=== PATIENT | female | born 1950 | race Caucasian/White ===

== ENCOUNTER 2017-05-27 18:12 | Emergency (ER) | payer MEDICARE, BC ==
[2017-05-27 20:36] LABS: % BASOPHILS 1.1 % (0.0-2.0); % EOSINOPHILS 1.5 % (0.0-5.0); % LYMPHOCYTES 13.6 % (20.0-50.0); % MONOCYTES 5.1 % (2.0-10.0); % NEUTROPHILS 78.7 % (40.0-80.0); HEMATOCRIT 43.2 % (41.0-60); HEMOGLOBIN 14.5 gm/dL (12-16); MEAN CELL VOLUME 89.8 fl (81-100); MEAN CORPUSCULAR HEMOGLOBIN 30.2 pg (27.0-31.0); MEAN CORPUSCULAR HGB CONC 33.6 pg (28.0-36.0); MEAN PLATELET VOLUME 8.4 fl; NEUTROPHILE ABSOLUTE 7.4 Th/cmm (1.8-8.0); PLATELET COUNT 187 Th/cmm (150-400); RED BLOOD COUNT 4.81 Mil/cmm (3.80-5.20); RED CELL DISTRIBUTION WIDTH 12.5 % (11.5-20.0); WHITE BLOOD COUNT 9.4 Th/cmm (4.8-10.8)
[2017-05-27 20:54] LABS: ALB/GLOB RATIO 1.5 (1.0-1.8); ALKALINE PHOSPHATASE 65 U/L (34-104); ANION GAP 11.6 (7.0-16.0); BILIRUBIN,TOTAL 0.8 mg/dL (0.3-1.0); BUN - UREA NITROGEN 11 mg/dL (7-25); BUN/CREATININE RATIO 12.2; CALCIUM SERUM 10.1 mg/dL (8.6-10.3); CARBON DIOXIDE 28.8 mEq/L (21.0-31.0); CHLORIDE 101 mEq/L (98-107); CREATININE - SERUM 0.9 mg/dL (0.6-1.2); GLUCOSE 105 mg/dL (70-105); POTASSIUM SERUM 3.4 mEq/L (3.5-5.1); SGOT 22 U/L (13-39); SGPT/ALT 22 U/L (7-52); SODIUM SERUM 138 mEq/L (136-145)
[2017-05-27 21:24] LABS: URINE BILIRUBIN NEGATIVE (NEGATIVE); URINE BLOOD LARGE (NEGATIVE); URINE GLUCOSE (UA) NEGATIVE (NEGATIVE); URINE KETONE NEGATIVE (NEGATIVE); URINE PROTEIN NEGATIVE (NEGATIVE); URINE UROBILINOGEN 0.2 E.U./dL (0.2 - 1.0)
[2017-05-27 21:29] LABS: URINE BACTERIA NONE SEEN /hpf (NONE SEEN); URINE COLOR PALE YELLOW; URINE EPITHELIAL CELLS NONE SEEN /lpf (FEW); URINE WBC 0-2 /hpf (0-5)
[2017-05-27] MEDS ORDERED: Albuterol/Ipratropium Neb 3 ML AERS HHN ONE ×2 (21:44→21:49)
[2017-05-27] MEDS ORDERED: OSELTAMIVIR PHOSPHATE 75 MG CAP PO ONE (22:17)
[2017-05-28] MEDS ORDERED: OSELTAMIVIR PHOSPHATE 75 MG CAP PO SCH (09:00)
--- NOTE | 2017-05-28 09:45 | Diagnostic Imaging Report ---
CHEST X-RAY: AP view INDICATION: Cough COMPARISON: None FINDINGS: Suboptimal lung volumes are noted. Mild chronic lung changes are seen with left basal atelectatic changes. No focal consolidation or effusions. Heart size is normal. Degenerative changes of the spine are noted. IMPRESSION: Mild chronic lung changes with left basal atelectatic changes. No focal consolidation identified.
--- NOTE | 2017-05-28 10:30 | ED Physician Chart ---
ED Chief Complaint/HPI - Patient Information Date Seen:: 05/27/17 Time Seen:: 19:30 Chief Complaint:: Cough History of Present Illness:: 66 yo female walked into the ER with c/o dry cough and mid upper chest tightness x 1 day. pt states "I feel lousy". pt states yesterday she felt fine. pt is speaking to RN easily. VS are all WNL with noted slightly tachycardiac. O2 saturation is 97% on room air. Allergies:: Allergies Allergy/AdvReac Type Severity Reaction Status Date / Time aspirin Allergy Verified 05/27/17 20:45 famotidine [From Pepcid] Allergy Verified 05/27/17 20:45 guaifenesin Allergy Verified 05/27/17 20:45 ibuprofen Allergy Verified 05/27/17 20:45 niacin Allergy Verified 05/27/17 20:45 ramipril [From Altace] Allergy Verified 05/27/17 20:45 ranitidine [From Zantac] Allergy Verified 05/27/17 20:45 ED Review of Systems - Review of Systems General/Constitutional: No fever, No chills, Weakness Skin: No bruising Head: No light-headedness Eyes: No pain ENT: No nasal drainage Neck: No neck pain Cardio Vascular: No chest pain Pulmonary: Cough GI: No nausea, No vomiting Musculoskeletal: No bone or joint pain Psychiatric: No prior psych history ED Past Medical History - Past Medical History Past Medical History: HTN, PUD/GERD Social History: Non Smoker, No Alcohol, No Drug Use Surgical History: None Family Medical History - Family Member Mother Ethnicity: Non- ED Physical Exam - Physical Examination General/Constitutional: Awake, Alert Head: Atraumatic Eyes: PERRL, EOMI Skin: No ecchymosis ENMT: Nasal exam nl Neck: No nuchal rigidity Respiratory: No Wheeze/Rhonchi/Rales Cardio Vascular: RRR, No murmur, gallop, rubs, NL S1 S2 GI: No tenderness/rebounding/guarding Extremities: normal strength in all extremities Neuro/Psych: No focal deficits ED Labs/Radiology/EKG Results - Lab Results Results: Laboratory Tests 05/27/17 05/27/17 05/27/17 20:26 20:26 20:26 WBC 9.4 RBC 4.81 Hgb 14.5 Hct 43.2 MCV 89.8 MCH 30.2 MCHC Differential 33.6 RDW 12.5 Plt Count 187 MPV 8.4 Neutrophils % 78.7 Lymphocytes % 13.6 L Monocytes % 5.1 Eosinophils % 1.5 Basophils % 1.1 Sodium 138 Potassium 3.4 L Chloride 101 Carbon Dioxide 28.8 Anion Gap 11.6 BUN 11 Creatinine 0.9 Est GFR ( Amer) > 60.0 Est GFR (Non-Af Amer) > 60.0 BUN/Creatinine Ratio 12.2 Glucose 105 Hemoglobin A1c % 5.8 Calcium 10.1 Total Bilirubin 0.8 AST 22 ALT 22 Alkaline Phosphatase 65 Total Protein 7.6 Albumin 4.6 Globulin 3.0 Albumin/Globulin Ratio 1.5 Urine Source Urine Color Urine Clarity Urine pH Ur Specific [place] Urine Protein Urine Glucose (UA) Urine Ketones Urine Blood Urine Nitrate Urine Bilirubin Urine Urobilinogen Ur Leukocyte Esterase Urine RBC Urine WBC Ur Epithelial Cells Urine Bacteria 05/27/17 20:55 WBC RBC Hgb Hct MCV MCH MCHC Differential RDW Plt Count MPV Neutrophils % Lymphocytes % Monocytes % Eosinophils % Basophils % Sodium Potassium Chloride Carbon Dioxide Anion Gap BUN Creatinine Est GFR ( Amer) Est GFR (Non-Af Amer) BUN/Creatinine Ratio Glucose Hemoglobin A1c % Calcium Total Bilirubin AST ALT Alkaline Phosphatase Total Protein Albumin Globulin Albumin/Globulin Ratio Urine Source RANDOM Urine Color PALE YELLOW Urine Clarity CLEAR Urine pH 6.0 Ur Specific [place] <= 1.005 Urine Protein NEGATIVE Urine Glucose (UA) NEGATIVE Urine Ketones NEGATIVE Urine Blood LARGE H Urine Nitrate NEGATIVE Urine Bilirubin NEGATIVE Urine Urobilinogen 0.2 Ur Leukocyte Esterase NEGATIVE Urine RBC 5-10 H Urine WBC 0-2 Ur Epithelial Cells NONE SEEN Urine Bacteria NONE SEEN - Radiology Results Results: CXR: no infiltrate ED Assessment - Assessment General Assessment: Cough due to upper respiratory viral infection Critical Care Time: 30 min Excludes all billable procedures: Yes This condition life threatening/high prob of deterioration: No Assessment/Comments:: CBC, CMP CXR DuoNeb nebulizer Diovan Lopressor Tamiflu Atrovent HFA ED Septic Shock - . Is Septic Shock (SBP<90, OR Lactate>4 mmol\\L) present?: No ED Reassessment (Disposition) - Reassessment Reassessment Condition:: Improved - Aftercare/Follow up Instructions Aftercare/Follow-Up Instructions:: Counseled pt regarding lab results/diagnosis & need follow up, Refer to Discharge Instructions - Patient Disposition Discharge/Transfer:: Home ED Discharge Plan - Patient Disposition Admit/Discharge/Transfer: PT DISCHARGED HOME Prescriptions: Oseltamivir Phosphate [Tamiflu] 75 mg PO BID #10 cap Instructions: Upper Respiratory Infection, Adult, [id number] Additional Instructions: follow up with your primary medical doctor SENAIT take prescribed medications as ordered
== END 2017-05-27 22:50 | disposition home or self-care (01) ==
LOC: ER 18:12
DX: J06.9 Acute upper respiratory infection, unspecified (principal); I10 Essential (primary) hypertension; K21.9 Gastro-esophageal reflux disease without esophagitis; Z87.11 Personal history of peptic ulcer disease
CPT/HCPCS: 36415-UA; 71010-TC; 80053-TC; 81001-TC; 83036-90; 85025-TC; 94640; Z7502